=== PATIENT | female | born 1945 | race Caucasian/White ===

== ENCOUNTER 2019-01-14 06:42 | Day surgery (SDC) | payer MEDICARE, OTHER ==
[2019-01-14] VITALS (14 sets, daily range): BP systolic 124–144; BP diastolic 63–81; PULSE 64–76; RESP 15–20; Ht 157.5 cm; Wt 107.7 kg
[~2019-01-14] VITALS: Ht 157.5 cm; Wt 107.7 kg
[~2019-01-14 06:42] MED LIST: CEFAZOLIN 2 GM/50 ML (PMX) 50 ML IVPB ONE
[2019-01-14] MEDS ORDERED: SEVOFLURANE 15 MIN ONE (07:00)
[2019-01-14] MEDS ORDERED: LACTATED RINGER'S 1,000 ML IV SCH (07:10)
[2019-01-14] MEDS ORDERED: ATEN50TA PO (08:02)
[2019-01-14] MEDS ORDERED: INSU100I33 SQ (08:02)
[2019-01-14] MEDS ORDERED: BUPIVACAINE 0.5%/EPI (SDV) 30 ML INJ ONE (08:17)
--- NOTE | 2019-01-14 08:46 | PREAC ---
Date/Time of Note Date/Time of Note DATE: 01/14/19 TIME: 08:44 Anesthesia Eval and Record Evaluation Time Pre-Procedure Interview DATE: 01/14/19 TIME: 08:44 Age 73 Sex female NPO: 8 hrs Preoperative diagnosis posterior right shoulder mass Planned procedure excision of mass Past Medical History Past Medical History: Includes Cardio: HTN, Arrythmia (hx, now NSR ) Endo: Diabetes Musculoskeletal: Osteoarthritis GI: Morbid obesity Surgery & Anesthesia Issues No known issue Meds Anticoagulation: No Beta Carlos within 24 hr: Yes Reported Medications Insulin Glargine,Hum.rec.anlog (Basaglar Kwikpen U-100) 100 Unit/1 Ml Insuln.pen, 80 UNITS SQ DAILY 01/14/19 Atenolol* (Atenolol*) 50 Mg Tablet, 50 MG PO DAILY 01/14/19 Current Medications Lactated Ringer's 1,000 ml @ 20 mls/hr Q24H IV Last administered on 01/14/19at 08:04; Admin Dose 20 MLS/HR; Start 01/14/19 at 07:10 Meds reviewed: Yes Allergies Coded Allergies: No Known Allergy (Verified Allergy, Mild, 05/24/07) Allergies Reviewed: Yes Labs/Studies Labs Reviewed: Reviewed by anesthesiologist Result Diagram: 01/14/1971901/14/1920 Laboratory Tests 01/14/19 07:20 test: N/A Pre-procedure Exam Last vitals Vital Signs Date Temp Pulse Resp B/P (MAP) Pulse Ox O2 O2 Flow FiO2 Time Delivery Rate 01/14/19 97.0 71 19 143/81 96 Room Air 07:51 (101) Airway: Adequate mouth opening, Adequate thyromental dist Mallampati: Mallampati III Teeth: Normal Lung: Normal Heart: Normal ASA Physical Status ASA physical status: 3 Emergency: None Pre-operative Attestations Prior to commencing anesthesia and surgery, the patient was re-evaluated, there was verification of: *The patient's identity *The results of appropriate recent lab work and preoperative vital signs *The above evaluation not changing prior to induction *Anesthetic plan, risk benefits, alternative and complications discussed with patient/family; questions answered; patient/family understands, accepts and wishes to proceed. JANNY CASAREZ DO January 14, 2019 08:46
[2019-01-14] MEDS ORDERED: HYDROmorphONE 1 MG/5 ML IV SYRINGE IV PRN ×2 (09:00)
[2019-01-14] MEDS ORDERED: hydrALAzine 20 MG INJ IV PRN (09:00)
[2019-01-14] MEDS ORDERED: ONDANSETRON 4 MG INJ IV PRN (09:00)
[2019-01-14] MEDS ORDERED: LABETALOL HCL 20MG INJ IV PRN (09:00)
[2019-01-14] MEDS ORDERED: PROPOFOL 20 ML ONE (10:49)
[2019-01-14] MEDS ORDERED: LIDOCAINE 2% (SDV) 5 ML INJ ONE (10:49)
[2019-01-14] MEDS ORDERED: ETOMIDATE 20 MG INJ ONE (10:49)
[2019-01-14] MEDS ORDERED: ONDANSETRON 4 MG INJ ONE (10:55)
[2019-01-14] MEDS ORDERED: CEFAZOLIN 1 GM INJ ONE (10:55)
[2019-01-14] MEDS ORDERED: FENTAnyl 50 MCG/ML VIAL ONE (10:56)
--- NOTE | 2019-01-14 12:04 | PAC ---
Date/Time of Note Date/Time of Note DATE: 01/14/19 TIME: 12:03 Post-Anesthesia Notes Post-Anesthesia Note Last documented vital signs Vital Signs Date Temp Pulse Resp B/P (MAP) Pulse Ox O2 O2 Flow FiO2 Time Delivery Rate 01/14/19 98 79 19 143/73 96 Room Air 1200 Activity: WNL Respiratory function: WNL Cardiovascular function: WNL Mental status: Baseline Pain reasonably controlled: Yes Hydration appropriate: Yes Nausea/Vomiting absent: Yes JANNY CASAREZ DO January 14, 2019 12:03
--- NOTE | 2019-01-14 12:23 | OPR ---
Date/Time of Note Date/Time of Note DATE: 01/14/19 TIME: 12:19 Operative Report Procedure Date: January 14, 2019 Preoperative Diagnosis Right posterior shoulder lesion Postoperative Diagnosis Same, 7 x 5 cm Operation/Procedure Performed 1. Excision of right posterior shoulder subcutaneous 7 x 5 cm lesion 2. Local anesthetic injection, [id number] Surgeon Gudelia Rodrigues MD President And Ceo Anna Dsouza, LASHA Anesthesia Type: general Estimated Blood Loss: 0 - 10 ml's Transfusion none Specimen Lesion Grafts/Implants none Tubes/Drains None Complications none Pt Condition Post Procedure: stable Disposition: PACU Indications 73-year-old female with growing lesion on her right posterior shoulder. She has discomfort at the site. She is here for excision. Patient has been seen by primary and granulator machine operator and cleared for surgery. Risks include but are not limited to bleeding, infection, abscess, seroma, leak, chronic wound, chronic pain, need for re-operations or further surgeries, [place], stroke, PE, DVT, pneumonia, organ failures, or even . Procedure Description Patient was brought in and placed supine initially on the operating table. After induction of anesthesia she was placed in lateral with right side up and all pressure points well-padded. She was prepped and draped sterilely. Preoperative antibiotics administered. Timeout was performed. Elliptical transverse incision was made into the subcutaneous tissue leaving wedge of skin on top of the lesion. Incision was extended into and around the lesion to fully as circumferentially excise it from the fascia. Complete hemostasis was obtained. Specimen was sent to pathology. Wound was irrigated with warm water to clear suctioning fluid. There was complete hemostasis once again. Wound was closed with 2-0 Vicryl dermal in the running fashion followed by 2-0 nylon vertical mattress nylon closure. 4 x 4 and Tegaderm were applied. Patient was placed back in supine position. She was recovered and taken back to PACU in stable condition. All counts were correct at the end of the operation x2. Copies To: CC: SAMREEN AGUIAR MD ; GUDELIA RODRIGUES MD January 14, 2019 12:23
[2019-01-14] MEDS ORDERED: IBUPROFEN 600 MG TAB PO PRN (12:30)
[2019-01-14] MEDS ORDERED: morphine 2 MG INJ IV PRN (12:30)
[2019-01-14] MEDS ORDERED: HYDROCODONE/APAP (5/325) TAB PO PRN (12:30)
--- NOTE | 2019-01-14 18:53 | RADRPT ---
Vent Rate: 68 bpm RR Interval: 880 msec [place] Interval: 178 msec QRS Duration: 79 msec QT Interval: 411 msec QTC Interval: 438 msec P-R-T [place]: 48 - 3 - 25 degrees Sinus rhythm...normal P axis, V-rate 50- 99 Electronically Signed By: Chris Grant
== END 2019-01-14 14:09 | disposition home or self-care (01) ==
LOC: SDS 06:42
PROVIDERS: ATTEND Surgery
DX: D17.21 Benign lipomatous neoplasm of skin and subcutaneous tissue of right arm (principal); I10 Essential (primary) hypertension; E11.9 Type 2 diabetes mellitus without complications; Z79.4 Long term (current) use of insulin
CPT/HCPCS: 24073; 80053; 82962; 85025; 85610; 85730; 88307; 93005; J0690; J2405; J3010